=== PATIENT | male | born 2000 | race Caucasian/White ===

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

== ENCOUNTER 2021-02-22 20:31 | Emergency (ER) | payer BC, OTHER ==
[~2021-02-22] VITALS: Ht 182.9 cm; Wt 68.9 kg
--- NOTE | 2021-02-22 20:51 | NUR ---
PT AAOX4. BIB FATHER C/O UNABLE TO SLEEP X3 DAYS, ADMITS TO [facility] US. PLACED IN BED 13 ON MONITOR AND PULSE OX. VSS. NO ACUTE DISTRESS NOTED. AWAITING ER MD FOR EVAL AND ORDERS.
--- NOTE | 2021-02-22 21:40 | NUR ---
LINE ESTABLISHED, BLOOD COLLECTED, SENTT TO LAB.
[2021-02-22] MEDS ORDERED: LORAZEPAM INJ 2 MG/ML VIAL ONE (21:43)
--- NOTE | 2021-02-22 21:46 | NUR ---
UNABLE TO PROVIDE URINE AT THIS TIME, WILL ASK LATER.
[2021-02-22 21:50] LABS: BASOPHILS # (AUTO) 0.1 K/uL (0.0-0.2); BASOPHILS % (AUTO) 1.1 % (0.0-2.0); EOSINOPHILS % (AUTO) 1.6 % (0.0-6.0); HEMATOCRIT 46 % (39-51); HEMOGLOBIN 15.7 g/dL (13.5-17.5); LYMPHOCYTES # (AUTO) 2.6 K/uL (0.8-4.8); LYMPHOCYTES % (AUTO) 39.3 % (20.0-44.0); MEAN CORPUSCULAR HGB CONC 34 g/dl (31.0-36.0); MEAN CORPUSCULAR VOLUME 90 fL (80-96); MONOCYTES # (AUTO) 0.8 K/uL (0.1-1.30); MONOCYTES % (AUTO) 11.9 % (2.0-12.0); NEUTROPHILS # (AUTO) 3.1 K/uL (1.8-8.9); NEUTROPHILS % (AUTO) 46.1 % (43.0-81.0); PLATELET COUNT (AUTO) 289 K/uL (150-450); RED BLOOD CELL COUNT(AUTO) 5.14 MIL/uL (4.5-6.0); WHITE BLOOD COUNT (AUTO) 6.7 K/uL (4.3-11.0)
[2021-02-22 21:59] LABS: CALCIUM, SERUM 8.7 mg/dL (8.5-10.1); CARBON DIOXIDE 30 mmol/L (21-32); CHLORIDE 104 mmol/L (98-107); CREATININE 1.1 mg/dL (0.6-1.3); GLUCOSE 106 mg/dL (74-106); POTASSIUM 3.8 mmol/L (3.5-5.1); SODIUM SERUM 140 mmol/L (136-145); UREA NITROGEN, BLOOD 8 mg/dL (7-18)
[2021-02-22] MEDS ORDERED: LORAZEPAM INJ 2 MG/ML VIAL IVP ONE (22:00)
[2021-02-22] MEDS ORDERED: IV NS 0.9% 1,000 ML BAG IV ONE (22:00)
[2021-02-22 22:05] LABS: ALANINE AMINOTRANSFERASE 17 U/L (12-78); ALBUMIN 4.2 g/dL (3.4-5.0); ALKALINE PHOSPHATASE 120 U/L (46-116); ASPARTATE AMINOTRANSFERASE 14 U/L (15-37); BILIRUBIN,DIRECT 0.1 mg/dL (0.0-0.2); BILIRUBIN,TOTAL 0.5 mg/dL (0.2-1.0); TOTAL PROTEIN, SERUM 7.4 g/dL (6.4-8.2)
[2021-02-22 22:07] LABS: ACETAMINOPHEN 0 ug/ml (10-30); ALCOHOL, BLOOD < 3 mg/dL (0-0)
--- NOTE | 2021-02-22 22:24 | NUR ---
PATIENT ALERT AND ORIENTED RESTING COMFORTABLY NO COMPLAINTS
[2021-02-22] MEDS ORDERED: LIDOCAINE 2% JEL UROJET 10 ML MM ONE (23:13)
[2021-02-23] MEDS ORDERED: IV NS 0.9% 1,000 ML BAG IV ONE
--- NOTE | 2021-02-23 00:25 | NUR ---
URINE COLLECTED AND SENT TO LAB
[2021-02-23 00:29] LABS: BILIRUBIN,URINE SMALL (NEGATIVE); COLOR,URINE YELLOW (YELLOW); LEUKOCYTE ESTERASE ,URINE Negative (NEGATIVE); NITRITE, URINE Negative (NEGATIVE); PH,URINE 6.5 (5.0-8.0); PROTEIN,URINE Trace mg/dl (NEGATIVE); UGLUCOSE Negative (NEGATIVE)
--- NOTE | 2021-02-23 00:49 | NUR ---
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
--- NOTE | 2021-02-23 01:45 | NUR ---
CALLED FATHER, NO ANSWER.
--- NOTE | 2021-02-23 02:28 | NUR ---
patient resting comfortably no complaints at this time.
--- NOTE | 2021-02-23 03:24 | NUR ---
recieved call from father clyde for pickup 20 mins
[2021-02-23 03:29] VITALS: BP 144/81
--- NOTE | 2021-02-23 03:29 | NUR ---
Patient discharged to home in stable condition. Written and verbal after care instructions given. Patient verbalizes understanding of instruction.
== END 2021-02-23 03:37 | disposition home or self-care (01) ==
LOC: ER 20:44
DX: F19.10 Other psychoactive substance abuse, uncomplicated (principal); F15.921 Other stimulant use, unspecified with intoxication delirium; R00.0 Tachycardia, unspecified; R45.1 Restlessness and agitation; E86.0 Dehydration
CPT/HCPCS: 36415; 80048; 80076; 80143; 80307; 80320; 81003; 85025; 96361; 96374; 99285; J2060; J3490; J7030; G0480

== ENCOUNTER 2021-02-24 13:02 | Emergency (ER) | payer OTHER ==
[~2021-02-24] VITALS: Ht 182.9 cm; Wt 73.9 kg
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
[2021-02-24 13:52] LABS: BASOPHILS # (AUTO) 0.1 K/uL (0.0-0.2); BASOPHILS % (AUTO) 0.7 % (0.0-2.0); HEMATOCRIT 40 % (39-51); HEMOGLOBIN 13.8 g/dL (13.5-17.5); LYMPHOCYTES # (AUTO) 2.2 K/uL (0.8-4.8); MEAN CORPUSCULAR HGB CONC 35 g/dl (31.0-36.0); MEAN CORPUSCULAR VOLUME 89 fL (80-96); MONOCYTES # (AUTO) 1.1 K/uL (0.1-1.30); MONOCYTES % (AUTO) 11.4 % (2.0-12.0); NEUTROPHILS # (AUTO) 6.4 K/uL (1.8-8.9); NEUTROPHILS % (AUTO) 64.9 % (43.0-81.0); PLATELET COUNT (AUTO) 256 K/uL (150-450); WHITE BLOOD COUNT (AUTO) 9.9 K/uL (4.3-11.0)
[2021-02-24 14:08] LABS: CALCIUM, SERUM 8.7 mg/dL (8.5-10.1); CARBON DIOXIDE 27 mmol/L (21-32); CHLORIDE 105 mmol/L (98-107); CREATININE 1.2 mg/dL (0.6-1.3); GLUCOSE 95 mg/dL (74-106); POTASSIUM 3.4 mmol/L (3.5-5.1); SODIUM SERUM 140 mmol/L (136-145); UREA NITROGEN, BLOOD 10 mg/dL (7-18)
[2021-02-24 14:21] LABS: ACETAMINOPHEN 1 ug/ml (10-30); ALANINE AMINOTRANSFERASE 25 U/L (12-78); ALBUMIN 3.8 g/dL (3.4-5.0); ALKALINE PHOSPHATASE 109 U/L (46-116); ASPARTATE AMINOTRANSFERASE 33 U/L (15-37); BILIRUBIN,DIRECT 0.2 mg/dL (0.0-0.2); BILIRUBIN,TOTAL 0.7 mg/dL (0.2-1.0); TOTAL PROTEIN, SERUM 6.5 g/dL (6.4-8.2)
[2021-02-24 14:24] LABS: ALCOHOL, BLOOD < 3 mg/dL (0-0)
--- NOTE | 2021-02-24 14:32 | NUR ---
URINE COLLECTED AND SENT TO THE LAB
[2021-02-24 14:42] LABS: BILIRUBIN,URINE NEGATIVE (NEGATIVE); COLOR,URINE YELLOW (YELLOW); LEUKOCYTE ESTERASE ,URINE NEGATIVE (NEGATIVE); NITRITE, URINE NEGATIVE (NEGATIVE); PROTEIN,URINE NEGATIVE (NEGATIVE); UGLUCOSE NEGATIVE (NEGATIVE); UROBILINOGEN,URINE 0.2 EU/dL (0.2)
[2021-02-24] MEDS: IV NS 0.9% 1,000 ML BAG IV ONE (15:02)
--- NOTE | 2021-02-24 21:56 | NUR ---
[facility] [phone]
--- NOTE | 2021-02-25 03:30 | NUR ---
PATIENT ALERT AND ORIENTED RESTING COMFORTABLY NO COMPLAINTS AT THSIT YON
--- NOTE | 2021-02-25 05:05 | NUR ---
PATIENT RESTING COMFORTABLY NO COMPLAINTS AT THIS TIME
--- NOTE | 2021-02-25 05:49 | NUR ---
Patient discharged to home in stable condition. Written and verbal after care instructions given. Patient verbalizes understanding of instruction.
[2021-02-25 05:50] VITALS: BP 133/70
== END 2021-02-25 05:50 | disposition home or self-care (01) ==
LOC: ER 13:09
DX: F15.10 Other stimulant abuse, uncomplicated (principal); F19.90 Other psychoactive substance use, unspecified, uncomplicated
CPT/HCPCS: 36415; 80048-TC; 80076-TC; 85025-TC; G0480; J7030